=== PATIENT | male | born 1970 | race Native Hawaiian/Other Pacific Islander ===

== ENCOUNTER 2020-11-26 08:49 | Outpatient (CLI) | payer BC, OTHER | END 2020-11-26 21:41 | disposition home or self-care (01) | LOC: INF 08:49 | PROVIDERS: ATTEND Internal Medicine Endocrinology, Diabetes & Metabolism | DX: Z23 Encounter for immunization (principal) | CPT/HCPCS: 96372 ==

== ENCOUNTER 2020-12-24 08:08 | Outpatient (CLI) | payer BC, OTHER | END 2020-12-24 23:08 | disposition home or self-care (01) | LOC: INF 08:08 | PROVIDERS: ATTEND Internal Medicine Endocrinology, Diabetes & Metabolism | DX: Z23 Encounter for immunization (principal) | CPT/HCPCS: 96372 ==

== ENCOUNTER 2023-04-07 08:23 | Outpatient (CLI) | payer BC | END 2023-04-07 19:00 | disposition home or self-care (01) | LOC: RAD 08:23 | PROVIDERS: ATTEND Nurse Practitioner | DX: M25.572 Pain in left ankle and joints of left foot (principal) ==